=== PATIENT | male | born 1985 | race Caucasian/White ===

== ENCOUNTER 2018-06-07 16:02 | Emergency (ER) | payer MEDICAID, OTHER ==
[~2018-06-07] VITALS: Ht 172.7 cm; Wt 89.8 kg
[2018-06-07 16:16] VITALS: BP 126/72
--- NOTE | 2018-06-07 16:22 | NUR ---
BIB C/O RIGHT HAND PAIN X 5 DAYS. PT STATES HE WAS WORKING AND GOT CUT BY A DIRTY NAIL, 10/10 BURNING PAIN SINCE LAST NIGHT. +CMS, + ROM < 3 CAP REFILL, + SWELLING, + REDNESS TOOK MOTIRN 800MG AT 1500. PATIENT POSITIONED FOR COMFORT; R HAND ELEVATED; BEDRAILS UP X2; BED DOWN. ER MD MADE AWARE OF PT STATUS.
--- NOTE | 2018-06-07 16:22 | NUR ---
PT AMB TO BED4
--- NOTE | 2018-06-07 16:23 | NUR ---
Patient being evaluated by DR ASCENCIO at bedside.
[2018-06-07] MEDS ORDERED: MORPHINE SULFATE 4 MG/ML SYR IVP ONE ×2 (16:30→19:25)
[2018-06-07] MEDS ORDERED: VANCOMYCIN 1,000 MG in DEXTROSE 5% 250 ML IV ONE (16:30)
--- NOTE | 2018-06-07 16:35 | NUR ---
X [facility] AT BEDSIDE
[2018-06-07] MEDS ORDERED: VANCOMYCIN 1,000 MG VIAL ONE ×2 (16:39→16:58)
[2018-06-07 16:56] LABS: BASOPHILS % (AUTO) 0.2 % (0.0-2.0); EOSINOPHILS # (AUTO) 0.1 K/uL (0-0.4); EOSINOPHILS % (AUTO) 0.5 % (0.0-4.0); HEMATOCRIT 40.4 % (36-52); HEMOGLOBIN 13.5 g/dL (12.0-18.0); LYMPHOCYTES # (AUTO) 1.3 K/uL (2.0-11.5); LYMPHOCYTES % (AUTO) 8.1 % (20.5-51.1); MEAN CORPUSCULAR HEMOGLOBIN 30 pg (27-31); MEAN CORPUSCULAR HGB CONC 33 g/dL (33-37); MEAN CORPUSCULAR VOLUME 88.9 fL (80-94); MONOCYTES # (AUTO) 1.1 K/uL (0.8-1.0); MONOCYTES % (AUTO) 6.8 % (1.7-9.3); NEUTROPHILS # (AUTO) 13.3 K/uL (1.8-7.7); NEUTROPHILS % (AUTO) 84.4 % (42.2-75.2); PLATELET COUNT (AUTO) 214 K/uL (140-450); RED BLOOD CELL COUNT(AUTO) 4.54 MIL/uL (4.20-6.10); RED CELL DISTRIBUTION WIDTH 12.6 % (11.6-13.7); WHITE BLOOD COUNT (AUTO) 15.8 K/uL (4.8-10.8)
[2018-06-07 17:04] LABS: ANION GAP 12.7 (8-16); CREATININE 1.2 mg/dL (0.7-1.3); POTASSIUM 3.7 mmol/L (3.5-5.1)
[2018-06-07 17:09] LABS: ALBUMIN 3.7 g/dL (3.4-5.0); TOTAL BILIRUBIN 0.7 mg/dL (0.0-1.0)
[2018-06-07] MEDS ORDERED: fentaNYL 0.05 MG/ML VIAL IVP ONE ×2 (17:35→18:30)
--- NOTE | 2018-06-07 19:08 | NUR ---
Pt report given to EUGENIE WOLFF. Transfer of care at this time.
--- NOTE | 2018-06-07 19:11 | NUR ---
REPORT FROM [facility] [place] AT THIS TIME
[2018-06-07] MEDS ORDERED: KETOROLAC 30 MG/ML VIAL IVP ONE (19:25)
[2018-06-07] MEDS ORDERED: HYDROcodone/APAP 5/325 MG 1 TAB TAB PO ONE (20:45)
--- NOTE | 2018-06-07 21:10 | NUR ---
[facility] AT BEDSIDE
--- NOTE | 2018-06-07 21:11 | NUR ---
Patient to be transferred to [facility]. Is being transferred due to HIGHER LEVEL OF CARE. Receiving facility has accepting physician and available space. ER physician has signed transfer form. Patient or responsible green party has agreed to transfer and signed form. Patient belongings inventoried and will be sent with patient. Copy of nursing notes, lab reports, EKG, Physicians Orders and X-rays to be sent with patient. Report called to [facility] [place] at receiving facility. [facility] ambulance service has been called for transfer.
--- NOTE | 2018-06-07 21:12 | NUR ---
PT TAKEN BY [facility] TO [facility]
[2018-06-07 21:13] VITALS: BP 137/73
== END 2018-06-07 21:11 | disposition short-term general hospital (02) ==
LOC: MED 16:02
DX: L03.113 Cellulitis of right upper limb (principal)
CPT/HCPCS: 29125; 36415; 73130; 80053; 85025; 87040; 90471; 90715; 96365; 96375; 96376; 99285; J1885; J2270; J3010; J3370; J7060